=== PATIENT | male | born 1955 | race Caucasian/White ===

== ENCOUNTER → 2020-02-04 | Outpatient (CLI) | payer MEDICARE ==
[2020-02-04 09:39] LABS: Anisocytosis Slight; HCT 29.7 % (39.0-53.0); HGB 8.8 gm/dL (13.0-17.5); Hypochromasia Marked; MCH 27.7 pg (25.0-35.0); MCHC 29.6 g/dL (31.0-37.0); MCV 93.4 fL (80.0-100.0); Mean Platelet Volume 11.1; Platelet Count 129 k/uL (150-450); Poikilocytosis Slight; RBC 3.18 m/uL (4.30-5.90); RDW 17.9 % (11.5-15.5); WBC 4.6 k/uL (3.8-10.6)
[2020-02-04 09:43] LABS: African American GFR (CKD) >90 (>60 ml/min/1.73 sqM); Blood Urea Nitrogen 17 mg/dL (9-20); Non-African American GFR(CKD) >90 (>60 ml/min/1.73 sqM)
[2020-02-04 10:43] LABS: Band Neutrophils % 1 %; Basophils # (M) 0.05 k/uL (0-0.2); Eosinophils # (M) 0.05 k/uL (0-0.7); Lymphocytes # (M) 1.56 k/uL (1.0-4.8); Metamyelocytes # (M) 0.05 k/uL (0); Metamyelocytes % 1 %; Monocytes # (M) 0.37 k/uL (0-1.0); Neutrophils % (M) 56 %; Nucleated Red Blood Cells 0 /100 WBC (0-0); Polychromasia Present; Total Cells Counted 200
[2020-02-04 10:44] LABS: Spherocytes Present
--- NOTE | 2020-02-04 14:58 | NM ---
EXAMINATION TYPE: NM bone scan whole body DATE OF EXAM: 02/04/2020 COMPARISON: CT scan 02/04/2020 HISTORY: Prostate cancer Delayed whole-body scanning was performed following the injection of 23.4 mCi Tc 99m MDP. Images acq uired 3 hours post injection. FINDINGS: There is diffuse abnormal uptake throughout the entire visualized skeletal system. Abnormal uptake involving the knees could be post arthritic. IMPRESSION: 1. Diffuse abnormal uptake throughout the visualized skeletal system suspicious for widespread bony m etastases.
--- NOTE | 2020-02-05 12:07 | CT ---
EXAMINATION TYPE: CT ChestAbdPelvis w con DATE OF EXAM: 02/04/2020 INDICATION: follow up prostate ca COMPARISON: Medicine bone scan 02/04/2020. CT DLP: 1088 mGycm CONTRAST: Performed with Oral Contrast and with IV Contrast, patient injected with 100 mL of Isovue 300. TECHNIQUE: Axial images at 5 mm thick sections. Reconstructed images in the coronal plane. Delayed images through the kidneys. FINDINGS: CT CHEST: Portion of the thyroid visualized is normal. There is a 0.2 cm nodule within the anterior right upper lung field. Series 4 image 20. A 0.6 cm area of lobular pneumonitis change may be within the right middle lobe near the minor fissure. Series 4 i mage 27. There is a 0.4 cm nodule within the periphery of the left lung base. Series 4 image 33. No enlarged mediastinal or hilar adenopathy is evident. The ascending aorta diameter at the level of the main pulmonary artery is 3.3 cm. The main pulmonary artery diameter at the bifurcation is 3.[address] ABDOMEN: Liver: Normal Spleen: Normal Pancreas: Normal Adrenal glands: The adrenal glands are normal. Gallbladder: Cholelithiasis. Kidneys: No masses are evident. No hydronephrosis is present. No cysts are present. Delayed images were obtained through the kidneys, which remain unremarkable. Aorta: Vascular calcification is within the aorta. Inferior vena cava: Normal. CT PELVIS: Small fat-containing periumbilical hernia is present. Loops of bowel within the abdomen and pelvis are normal. There are loops of bowel which are incom pletely distended or lack oral contrast limiting their evaluation. Appendix: Normal as visualized. Urinary bladder: Normal. Genitourinary structures: Prostate has some mild prominence. This has impression on the inferior urin vasu bladder. Calcification is present. Osseous structures: There is diffuse lytic and sclerotic areas throughout the osseous structures. Thi s involves essentially all visualized osseous structures. Spondylolysis of L5 is evident with a grade 1 to grade 2 spondylolisthesis. IMPRESSIONS: 1. Cholelithiasis. 2. Extensive osseous metastasis throughout visualized osseous structures. 3. Some prominence of the prostate with known underlying prostate cancer.
== END | disposition home or self-care (01) ==
LOC: RADCTMAIN 08:31
PROVIDERS: ATTEND Internal Medicine Hematology & Oncology
DX: C61 Malignant neoplasm of prostate (principal); K80.20 Calculus of gallbladder without cholecystitis without obstruction; R93.7 Abnormal findings on diagnostic imaging of other parts of musculoskeletal system; D60.9 Acquired pure red cell aplasia, unspecified; D70.9 Neutropenia, unspecified; D75.9 Disease of blood and blood-forming organs, unspecified
CPT/HCPCS: 84153; 82565; 84520; 85025; 71260; 74177; 36415; 78306; A9503; Q9967